=== PATIENT | male | born 1960 | race Caucasian/White ===

== ENCOUNTER 2016-09-27 09:42 | Emergency (ER) | payer MEDICARE ==
[2016-09-27 09:47] VITALS: BP 163/107
--- NOTE | 2016-09-27 10:35 | ED ---
Abdominal Pain/Male - HPI Summary HPI Summary: Patient presents to ED with concern for hernia. He notes a bulge in the right inguinal area since 4 days ago. Bulge is without pain, discoloration or temperature change. He had a hernia 40 years ago with repair in the same location. He has not had issues since that time and denies other abdominal surgeries. He is otherwise healthy. He states the bulge just happened spontaneously and he was not lifting or overexerting himself. Patient is a smoker. He denies N/V/C/D and has never had an abdominal obstruction. PMHx includes stroke for which he was hospitalized here [place] [facility] [place]. - History of Current Complaint Chief Complaint: EDGeneral Stated Complaint: LUMP ON ABD Time Seen by Provider: 09/27/16 10:17 Hx Obtained From: Patient Onset/Duration: Sudden Onset Timing: Constant Severity Initially: Mild Severity Currently: Mild Pain Intensity: 0 Pain Scale Used: 0-10 Numeric Location: Other - inguinal Radiates: No Character: Other: - no pain Aggravating Factor(s): Nothing Alleviating Factor(s): Nothing Associated Signs And Symptoms: Positive: Negative - Risk Factors Testicular Torsion: Negative Cardiac Risk Factors: Smoking - Allergies/Home Medications Allergies/Adverse Reactions: Allergies Allergy/AdvReac Type Severity Reaction Status Date / Time No Known Allergies Allergy Verified 09/27/16 09:45 PMH/Surg Hx/FS Hx/Imm Hx Previously Healthy: Yes - Surgical History Surgery Procedure, Year, and Place: HERNIA REPAIR CHILD - Immunization History Hx Pertussis Vaccination: No Immunizations Up to Date: No Infectious Disease History: No Infectious Disease History: Denies: Traveled Outside the [place] in Last 30 Days - Social History Occupation: Employed Full-time Lives: With Family Alcohol Use: None Hx Substance Use: No Substance Use Type: Reports: None Hx Tobacco Use: Yes Smoking Status (MU): Heavy Every Day Tobacco Smoker Type: Cigarettes Review of Systems Constitutional: Negative Cardiovascular: Negative Respiratory: Negative Gastrointestinal: Negative Genitourinary: Negative Positive: no symptoms reported, see HPI Musculoskeletal: Negative Positive: Other - bulge on right inguinal area Neurological: Negative Psychological: Normal All Other Systems Reviewed And Are Negative: Yes Physical Exam Triage Information Reviewed: Yes Vital Signs On Initial Exam: Initial Vitals Temp Pulse Resp BP Pulse Ox 98.9 F 106 18 163/107 100 09/27/16 09:45 09/27/16 09:45 09/27/16 09:45 09/27/16 09:45 09/27/16 09:45 Vital Signs Reviewed: Yes Appearance: Positive: Well-Appearing, No Pain Distress, Well-Nourished Skin: Positive: Warm, Skin Color Reflects Adequate Perfusion Head/Face: Positive: Normal Head/Face Inspection Eyes: Positive: EOMI, ANGELLA, Conjunctiva Clear Neck: Positive: Supple, No Lymphadenopathy Respiratory/Lung Sounds: Positive: Clear to Auscultation, Breath Sounds Present Cardiovascular: Positive: Normal, RRR, Pulses are Symmetrical in both Upper and Lower Extremities Musculoskeletal: Positive: Normal, Strength/ROM Intact, Other - bulge over right inguinal canal - most likely direct inguinal hernia without incarceration , strangulation, or bowel obstruction Neurological: Positive: Sensory/Motor Intact, Speech Normal Psychiatric: Positive: Normal - [place] Coma Scale Coma Scale Total: 15 Diagnostics - Vital Signs Vital Signs Temp Pulse Resp BP Pulse Ox 09/27/16 09:59 98.9 F 106 16 163/107 100 09/27/16 09:45 98.9 F 106 18 163/107 100 - Laboratory Lab Statement: Any lab studies that have been ordered have been reviewed, and results considered in the medical decision making process. Abdominal Pain Fem Course/Dx - Course Course Of Treatment: Right sided bulge over right inguinal canal - most likely direct inguinal hernia without incarceration, strangulation, or bowel obstruction. Reducible. Patient will follow up with Dr. Kumar as an outpatient for surgery. Denies pain, color or temperature changes. - Diagnoses Differential Diagnosis/HQI/PQRI: Bowel Obstruction, Ischemic Bowel, Other - hernia, direct, indirect Provider Diagnoses: Direct inguinal hernia Images - Images Full Body (No Head): 1 - inguinal hernia Discharge - Discharge Plan Condition: Stable Disposition: HOME Patient Education Materials: Inguinal Hernia (ED) Referrals: Mike Kumar MD [Medical Doctor] - Ulysses Catherine MD [Primary Care Provider] - Additional Instructions: Call Dr. Kumar's office today for appt. Dx: Inguinal Hernia If you develop any color changes, temperature changes or pain in the area, return to ED right away.
== END 2016-09-27 10:30 | disposition home or self-care (01) ==
LOC: ED 09:42
DX: K40.90 Unilateral inguinal hernia, without obstruction or gangrene, not specified as recurrent (principal); F17.210 Nicotine dependence, cigarettes, uncomplicated
CPT/HCPCS: 99282

== ENCOUNTER 2017-06-20 12:09 | Day surgery (SDC) | payer MEDICARE ==
[~2017-06-20 12:09] MED LIST: Buffered Lidocaine 0.9% SYRIN* 5 ML/SYR SYRINGE INTRADERM ONE; Famotidine IV* 10 MG/ML 2 ML (20 mg) IV ONE; Metoclopramide TAB* 10 MG PO ONE
[2017-06-20] MEDS ORDERED: ceFAZolin 2 GM PREMIX (*) 2 GM/50 ML BAG IVPB ONE (12:24)
[2017-06-20] MEDS ORDERED: Famotidine IV* 10 MG/ML 2 ML (20 mg) ONE (12:24)
[2017-06-20] MEDS ORDERED: Metoclopramide TAB* 10 MG ONE (12:24)
[2017-06-20] MEDS ORDERED: Buffered Lidocaine 0.9% SYRIN* 5 ML/SYR SYRINGE ONE (12:25)
[2017-06-20] MEDS ORDERED: Ondansetron INJ* 2 MG/ML VIAL ONE (12:52)
[2017-06-20] MEDS ORDERED: Lidocaine 2% PF * 5 ML VIAL ONE (12:52)
[2017-06-20] MEDS ORDERED: Ketorolac INJ* 30 MG/ML 1 ML VIAL ONE (12:52)
[2017-06-20] MEDS ORDERED: Propofol* 10 MG/ML 20 ML BTL IV PUSH ONE (12:52)
[2017-06-20] MEDS ORDERED: Dexamethasone IV* 4 MG/ML 1 ML (4 MG) ONE (12:52)
[2017-06-20] MEDS ORDERED: fentaNYL* 50 MCG/ML 2 ML VIAL (100 MCG VIAL) ONE (12:53)
[2017-06-20] MEDS ORDERED: Midazolam* 1 MG/ML 10 ML VIAL (10 MG) ONE (12:53)
[2017-06-20] MEDS ORDERED: KETAMINE HCL* 50 MG/ML 10 ML VIAL ONE (12:53)
[2017-06-20] MEDS ORDERED: Bupivacaine 0.5% SDV PF* 10-30ML VIAL ONE (13:16)
[2017-06-20] MEDS ORDERED: Lidocaine 1% MPF wEPI 200,000* 30 ML SDV ONE (13:16)
[2017-06-20] MEDS ORDERED: fentaNYL* 50 MCG/ML 2 ML VIAL (100 MCG VIAL) IV PRN (13:17)
[2017-06-20] MEDS ORDERED: Naloxone* 0.4 MG/ML 1 ML VIAL IV PRN (13:17)
[2017-06-20] MEDS ORDERED: Ondansetron INJ* 2 MG/ML VIAL IV PRN (13:17)
[2017-06-20] MEDS ORDERED: oxyCODONE/Acetamin 5/325 MG* TAB PO PRN ×2 (13:17→15:02)
[2017-06-20] MEDS ORDERED: EPHEDrine (Pressors)* 50 MG/ML VIAL ONE (14:12)
[2017-06-20 16:02] VITALS: BP 140/82
--- NOTE | 2017-06-21 19:08 | OP ---
DATE OF OPERATION: 06/20/17 [facility] DATE OF : 64 SURGEON: Kb Ramirez MD BUYER PLANNER: DORETHA Higginbotham ANESTHESIOLOGIST: Dr. Irvin Garay. ANESTHESIA: Local with MAC with conversion to LMA. PRE-OP DIAGNOSIS: Right inguinal hernia. POST-OP DIAGNOSIS: Right direct inguinal hernia. OPERATIVE PROCEDURE: Open repair with a Covidien ProGrip mesh of a right direct inguinal hernia. ESTIMATED BLOOD LOSS: Minimal. WOUND CLASSIFICATION: 1. COMPLICATIONS: None. DRAINS: None. SPECIMENS: None. DESCRIPTION OF PROCEDURE: Written informed consent was obtained, the right groin was marked with indelible ink and preoperative antibiotics were administered. The patient was taken to the operating room, placed in the supine position. Sequential compression devices and a warming blanket were applied. The right groin and lower abdomen were prepped and draped in the usual sterile fashion. Time-out verification was completed. A 0.25% Marcaine mixed with 1% lidocaine was infiltrated in the right groin and an oblique incision was made several fingerbreadths above the inguinal crease and carried down to the Amol's fascia. The external oblique aponeurosis was identified and opened in the direction of its fibers to expose the underlying spermatic cord. These cord structures were encircled with 1/4 inch [place] drain at the pubic tubercle. The inguinal floor was evaluated and there appeared to be a protuberance consistent with a direct hernia with defect in the transversalis fascia, which was adherent to the cord structures and this was freed up and dissected laterally to where we identified the epigastric vessels, which confirmed the fact that this was a direct space hernia. Careful evaluation of the cord and the structures did not reveal any indirect hernia, although there was a lipoma that was excised and not sent for specimen. The internal ring appeared to be of normal size. Once the direct space hernia had been identified, the ProGrip precut Covidien mesh was then placed and sutured to pubic tubercle with interrupted 0 Polysorb suture. This covered the direct and indirect space nicely and was sutured to the conjoint tendon superiorly with 1 interrupted 0 Vicryl suture. It was sutured to the inguinal ligament inferiorly with two separate 0 Polysorb and 0 Vicryl sutures. The mesh covered both the direct and indirect spaces nicely without evidence of wrinkling or overlap. Hemostasis was assured and additional Marcaine was infiltrated in the entire area. The external oblique aponeurosis was closed with a running 3-0 Vicryl suture and subcutaneous tissue was closed with the running 3-0 Vicryl suture. The skin was approximated with subcuticular 4-0 Vicryl suture. Steri-Strips and sterile dressings were applied. The patient tolerated the procedure well, was taken to the recovery room in stable condition. [id number]/[facility] #: [id number] CINDY
== END 2017-06-20 16:02 | disposition home or self-care (01) ==
LOC: OR 12:09
PROVIDERS: ATTEND Surgery
DX: K40.90 Unilateral inguinal hernia, without obstruction or gangrene, not specified as recurrent (principal); Z72.0 Tobacco use; I69.359 Hemiplegia and hemiparesis following cerebral infarction affecting unspecified side; Z79.82 Long term (current) use of aspirin
CPT/HCPCS: A9270-GY; C1781; J0690; J1100; J1885; J2001; J2250; J2405; J2704; J3010

== ENCOUNTER 2017-06-21 16:08 | Inpatient (IN) | payer MEDICARE ==
[2017-06-21] MEDS ORDERED: Propofol* 100 ML ONE (17:48)
[2017-06-21] MEDS: Propofol* 100 ML IV SCH ×2 (19:02→21:39)
[2017-06-21] MEDS ORDERED: VECURONIUM BROMIDE 10 MG INJ IV ONE (20:00)
--- NOTE | 2017-06-21 20:15 | RAD ---
Indication: Evaluate ET tube placement. Single frontal view of the chest performed at 1949 hours was reviewed. No prior study is available for comparison.. No mediastinal shift is noted. Heart is of normal size and configuration. Lung dejesus appear clear. ET tube is at the level of T3-T4. IMPRESSION: NO ACTIVE CARDIOPULMONARY DISEASE IS NOTED.
[2017-06-21] MEDS ORDERED: Thiamine IV* 100 MG/ML 2 ML VIAL IM ONE (20:32)
[2017-06-21] MEDS ORDERED: Acetaminophen SUPP* 650 MG SUPP PR PRN (20:32)
[2017-06-21] MEDS ORDERED: Iohexol 350* (CONTRAST) 500 ML MDV IV ONE (20:46)
--- NOTE | 2017-06-21 21:12 | RAD ---
Indication:Coma. CT of the brain was performed without IV contrast. Intratesticular structures are midline. No midline shift is noted. The extra-axial spaces are unremarkable. There is a hypodensity in the right basal ganglia likely representing old infarct. This was present on previous exam of 2011. Otherwise no midline shift is noted. No other high or low density lesions are identified. Mastoid air cells and paranasal sinuses are unremarkable. IMPRESSION: Prior infarct in the white matter of the right temporal lobe. No other mass or hemorrhage is noted. Leak
--- NOTE | 2017-06-21 21:25 | RAD ---
Indication: Stroke. Contrast: Administered 60.1 ml of OMNIPAQUE 350 mg/ml CTA of the head was performed after IV contrast administration. Coronal and sagittal reconstructed images were obtained. 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 The intracavernous portion of the left internal carotid artery demonstrates no evidence of flow. The right internal carotid artery in the intracavernous portion demonstrates atherosclerosis. There is reconstitution of the right middle and anterior cerebral arteries presumably due to a patent anterior communicating artery and posterior communicating artery. No aneurysmal dilatation is noted. 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 With reconstitution of the distal branches of left middle cerebral artery. There is reconstitution of the left anterior cerebral artery. Vertebral arteries, basilar arteries, posterior cerebral arteries appear patent. IMPRESSION: Posterior circulation is intact. 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 There is occlusion of the left middle cerebral artery at its origin with reconstitution of the anterior cerebral artery as well as distal branches of the left middle cerebral artery. The right middle cerebral artery is unremarkable.
[2017-06-21 21:45] LABS: ABS Basophils 0.1 10^3/ul (0-0.2); ABS Eosinophils 0 10^3/ul (0-0.6); ABS Lymphocytes 1.4 10^3/ul (1.0-4.8); ABS Monocytes 0.8 10^3/ul (0-0.8); ABS Neutrophils 7.9 10^3/ul (1.5-7.7); ABS Nucleated RBC 0 10^3/ul; Eosinophil % 0.5 % (0-6); Hematocrit 35 % (42-52); Hemoglobin 12.1 g/dl (14.0-18.0); Lymphocyte % 13.4 % (25-47); Mean Corpuscular HGB Conc 35 g/dl (31-36); Mean Corpuscular Hemoglobin 35 pg (27-31); Mean Corpuscular Volume 101 fL (80-94); Mean Platelet Volume 8 um3 (7.4-10.4); Nucleated Red Blood Cells % 0; Platelet Count 171 10^3/ul (150-450); Red Blood Count 3.43 10^6/ul (4.0-5.4); Red Cell Distribution Width 13 % (10.5-15); White Blood Count 10.3 10^3/ul (3.5-10.8)
[2017-06-21 22:01] LABS: EGFR Non-African American 119.5 (>60)
[2017-06-21 22:06] LABS: INR 0.84 (0.77-1.02)
[2017-06-21] MEDS: Aspirin SUPP* 300 MG PR SCH (22:10)
--- NOTE | 2017-06-21 22:13 | HP ---
ADMISSION HISTORY AND PHYSICAL: DATE OF ADMISSION: 06/21/17 REASON FOR ADMISSION: Coma. HISTORY OF PRESENT ILLNESS: This patient is a 56-year-old white male who had a right inguinal hernia repair here yesterday and was sent home with oxycodone and this morning was found comatose by his family and subsequently brought to [facility]. The patient was then transferred here because of lack of CT facility at the [facility]. The patient was intubated and placed on a ventilator while at the [facility]. The patient has a prior history of a right-sided CVA with left hemiparesis in 2011. According to the family, he occasionally uses a cane for support. There is no other significant past medical history other than the inguinal hernia. OUTPATIENT MEDICATIONS: 1. Aspirin 81 mg daily. 2. Oxycodone (prescription written yesterday). REVIEW OF SYSTEMS: Unobtainable. SOCIAL HISTORY: The patient is and lives alone. He has a prior history of alcohol abuse, and currently drinks about 4-5 beers daily. He also smokes about one pack cigarettes daily. PHYSICAL EXAMINATION GENERAL: The patient was unresponsive to deep pain. VITAL SIGNS: Temp 96.6, blood pressure 111/75, heart rate 85 and regular, respirations 15 per minute on the ventilator, O2 saturation 100% with FiO2 of 40 %, end-tidal CO2 37. HEENT: Pupils constricted and sluggishly reactive to light. Corneals intact. No facial asymmetry. NECK: Supple. CHEST: Clear. CARDIAC EXAM: No murmurs or rubs. ABDOMEN: Soft, not distended. PELVIS: There is a dressing present over the right inguinal incision, and there is swelling of the testicles with bluish discoloration. EXTREMITIES: Warm. NEUROLOGIC EXAM: There is myoclonic jerking of the left arm; otherwise, there were no focal findings. The patient did not move any extremities spontaneously. LABORATORY DATA: Most recent laboratory data at [facility] today revealed the following: White count of 17.2, hemoglobin 13.5, hematocrit 37.8, platelet count 223,000. Sodium 135, potassium 4.0, chloride 100, CO2 24, BUN 7 , creatinine 0.9, glucose 123, PO2 66, PCO2 37, pH 7.43. Salicylate and acetaminophen level were negative and the remainder of the tox screen pending. Urine oxycodone is positive. IMPRESSION: Coma of undetermined etiology. Possibilities include nonconvulsive status and acute stroke (especially involving the brainstem). Doubt drug overdose. MANAGEMENT PLAN: Will obtain CT scan of the head, EEG, and neurology consult. Further management will depend on results of these endeavors. CRITICAL CARE TIME: 60 minutes. Son present on admission to the ICU, and is aware of our concerns. The prognosis is very guarded at this point. [id number]/[facility] #: [id number] CINDY
[2017-06-21 22:17] LABS: Urine Appearance Clear; Urine Blood Negative (Negative); Urine Color Straw; Urine Ketones Negative (Negative); Urine Protein Negative (Negative); Urine Specific Gravity 1.014 (1.010-1.030); Urine Urobilinogen Negative (Negative)
--- NOTE | 2017-06-21 23:37 | CONS ---
CONSULTATION REPORT: DATE OF CONSULT: 06/21/17 PATIENT OF: Mr. Miller and Dr. Eubanks. HISTORY OF PRESENT ILLNESS: This is a 56-year-old man who was brought into [facility] today comatose, intubated and transferred to [facility]. Of note, he had a right inguinal herniorrhaphy yesterday for recurrent inguinal hernia. This went without complication. He was sent home that day. I spoke to Leah Thompson who had seen him in the [facility] ER. She was not in the ER at the time I reached her on her cell phone. She notes that after he was transferred, they found out that he was awake at noon or 12:30 and had texted his son that he was feeling well and going to take a nap. The family awaited that afternoon, called him and when he did not respond they showed up and he was found with significant neurological impairments and was brought to the [facility] Emergency Room. He did not open his eyes. He had no stiffness. He had some frothing of his mouth. He was able to have some semipurposeful movements of all extremities. He was paralyzed, sedated, and intubated and transferred to [facility]. Of note, going through his old records back in September of 2011, he had had a stroke at age 51 leaving with a right acute internal capsule ischemic stroke. This was revealed on MRI scan. He had a CTA at that time that showed less than 50% left internal carotid stenosis. No other lesions. He had a normal ejection fraction, apparently a hypercoagulable workup was done subsequent to the hospitalization and I do not know the results. He got tPA at the time of this stroke. He has a history of dyslipidemia, alcoholism, depression, and he smokes. He is apparently still drinking alcohol on an ongoing basis. PAST SURGICAL HISTORY: Other than his recent herniorrhaphy, there are no recent surgeries. He had a herniorrhaphy when he was a child. Apparently, according to anesthesia's notes, he has been left with a left hemiparesis and there is notes from physical therapy that he received some physical therapy as an outpatient after his stroke. MEDICATIONS: The patient's medicines at home were believed to be 81 mg of aspirin a day and he was given Percocet. He was supposed to take 1 to 2 pills, according to family there are only 2 pills missing from his pill bottle. He is receiving currently his meds include: 1. Propofol drip. 2. He has received vecuronium 8 mg once. 3. He has been given folic acid and thiamine. ALLERGIES: He has no known drug allergies. REVIEW OF SYSTEMS: Unavailable from the outpatient. PHYSICAL EXAM: Temperature 97.4, pulse 70, respirations 14, blood pressure 112/ 72. He was intubated. Pupils were 2 mm and sluggish. Cranial nerves were intact. He had some overbreathing of the ventilator that is some on occasion. He had his left arm was flexed with increased tone. His right arm was down. He had some minor, but apparent semipurposeful movements of lower extremities. He did not posture to noxious stimuli, but had some minor avoidance behavior. Toes were equivocal. Chest: Clear. Cardiovascular: Regular rate and rhythm. Abdomen was soft. He had ecchymotic testes. No other obvious bruising. DIAGNOSTIC STUDIES/LAB DATA: His CT scan was just done and shows evidence of his old subcortical stroke. There is no acute bleed or other findings that has not been read yet. His CTA has been done, was not loaded. He has had labs at [facility]. These include a white count of 17, hematocrit of 37, a platelet count of 223, granulocytes of 82.7. UA has a negative leuk esterase. His blood gas had a pH of 7.43, pCO2 37, pO2 66.9. The glucose was 123, BUN 7, creatinine 0.9. He had normal electrolytes. Calcium 9.3, total protein 6.8, albumin 3.8, total bili 0.7, SGOT 22, SGPT 15, alk phos 71, cocaine is pending. Other tox screens are all pending. I am not seeing a serum alcohol. His EEG showed admixed alpha, beta, and some theta activity. IMPRESSION AND PLAN: Mr. Jaime has had acute onset of coma somewhere between noon and 3:30. It is unclear of the cause of this. It is possible that this is related to drug or alcohol ingestion, although we do not have a firm history for this. We have discussed the case with Dr. Eubanks who is ordering thiamine and folic acid given his history of alcohol abuse. We will be getting an alcohol level if not obtained and we will also check a pneumonia level. Dr. Eubanks is going to notify the surgeons that he has had this event 1 day following his herniorrhaphy and get their input to see if they would have any recommendations from their point of view. He has a CTA. His CT did not show any bleed or stroke, but it is conceivable that this could represent a brainstem infract, so we may see something on his CTA. Now, he will need further imaging if not obtained. He does not appear to be having seizures and he is afebrile and we are checking with the surgeon to see if they think it could be infectious diseases. From awaited surgery, this is relatively acute onset. The CTA is still not up to view, but I have just spoken to the radiologist who is reading an occluded left internal carotid and a left MCA occlusion. He did not have this on his CTA from 2011. This is possibly and likely the his acute symptoms. From the time-frame, this is likely to wait for treating acute clot, but I will be speaking to the neurologist up at [facility] to see if they have any intervention to offer. Thank you for sharing his case. [id number]/[facility] #: [id number] I spoke to Dr Bowers within a half an hour and discussed the timing of his likely stroke and the findings on cta. Dr Bowers agrees that no agressive intervention is indicated at this time such as surgery or other procedures. CINDY
[2017-06-22] MEDS: Chlorhexidine MOUTHWASH 0.12%* 15 ML UDC TOPICAL SCH ×6 (00:05→19:56)
[2017-06-22] MEDS: Propofol* 100 ML IV SCH ×6 (01:29→19:08)
--- NOTE | 2017-06-22 03:46 | PN ---
Progress Note - Progress Note Date of Service: 06/22/17 Note: Mr Jaime is a 56YO male POD 1 elective R inguinal hernia repair who was last known intact 06/21/2017 @ 1208 via a text message to his son. He then was presented to [place] ED around 1500 comatose, intubated, and transferred to [facility] where he arrived at 1826. Further evaluation has unfortunately identified a L carotid occlusion via CTA with a currently normal CT brain WO. EEG is negative for status. I spoke with his son & [id number], who is a nurse, informing them of the diagnosis and expected poor prognosis. They wish for him to remain a full code at this time until repeat CT brain WO can be performed to more accurately assess his prognosis. Questions were sought and answered to their satisfaction. Patrick Solo MD surgery on-call was contacted and agreed there was no relation to the recent surgery. Given his quite poor clinical situation and expected course, I have reached out to [facility] in case once the f/u CT is returned, assuming the expected large infarction is present, the family wishes an evaluation for organ donation.
[2017-06-22 05:18] LABS: Hematocrit 34 % (42-52); Hemoglobin 11.7 g/dl (14.0-18.0); Mean Corpuscular HGB Conc 35 g/dl (31-36); Mean Corpuscular Hemoglobin 36 pg (27-31); Mean Corpuscular Volume 102 fL (80-94); Red Blood Count 3.28 10^6/ul (4.0-5.4); Red Cell Distribution Width 14 % (10.5-15); White Blood Count 8.9 10^3/ul (3.5-10.8)
[2017-06-22 05:45] LABS: ABS Basophils 0 10^3/ul (0-0.2); ABS Eosinophils 0.1 10^3/ul (0-0.6); ABS Lymphocytes 1.6 10^3/ul (1.0-4.8); ABS Neutrophils 6.1 10^3/ul (1.5-7.7); ABS Nucleated RBC 0 10^3/ul; Eosinophil % 0.7 % (0-6); Lymphocyte % 18.4 % (25-47); Mean Platelet Volume 9 um3 (7.4-10.4); Nucleated Red Blood Cells % 0; Platelet Count 132 10^3/ul (150-450)
[2017-06-22] MEDS: Aspirin SUPP* 300 MG PR SCH (08:04)
[2017-06-22] MEDS: Pantoprazole IV* 40 MG IV SCH (08:04)
[2017-06-22] MEDS: Multivitamins/Minerals TAB PO SCH (09:55)
[2017-06-22] MEDS: Thiamine TAB* 100 MG TAB PO SCH (09:55)
[2017-06-22] MEDS: Folic Acid TAB* 1 MG PO SCH (09:55)
--- NOTE | 2017-06-22 14:50 | RAD ---
HISTORY: Follow-up left carotid occlusion COMPARISONS: CTA dated June 21, 2017 TECHNIQUE: Multiple contiguous axial CT scans were obtained of the head without intravenous contrast. FINDINGS: HEMORRHAGE/INFARCT: There is hypoattenuation within the left inferior frontal lobe, operculum, anterior insula, and basal ganglia consistent with subacute nonhemorrhagic infarct. Elsewhere, there is no hemorrhage or acute infarct. MASSES/SHIFT: There is no mass or shift. EXTRA-AXIAL SPACES: There are no extra-axial fluid collections. SULCI AND VENTRICLES: The sulci and ventricles are normal in size and position for the patient's stated age. CEREBRUM: As noted above, there is hypoattenuation of the left inferior frontal lobe and insula and basal ganglia consistent with subacute nonhemorrhagic infarct. There is a chronic lacunar infarct of the right basal ganglia. BRAINSTEM: There are no focal parenchymal abnormalities. CEREBELLUM: There are no focal parenchymal abnormalities. VESSELS: The vessels are grossly normal. PARANASAL SINUSES: The paranasal sinuses are clear. ORBITS: The orbits are unremarkable. BONES AND SOFT TISSUE: No bone or soft tissue abnormalities are noted. OTHER: None IMPRESSION: SUBACUTE NONHEMORRHAGIC INFARCT INVOLVING THE LEFT INFERIOR FRONTAL LOBE AND ANTERIOR INSULA AND BASAL GANGLIA
--- NOTE | 2017-06-22 16:21 | PN ---
Date of Service: 06/22/17 Critical Care Services: Remains on ventilator and sedated with propofol. When off propofol, is agitated but unresponsive. Vital Signs: Temp Pulse Resp BP SpO2 FiO2 98.8 F 69 14 143/79 96 30 Physical Exam: Gen: HEENT: Lungs: Cardiac: Abdomen: Extremities: Neuro: Fluid Balance (Past 24 Hours): 06/22/17 06:59 Intake Total 1648 Output Total 4750 Balance -3102 Weight 176 lb Intake: IV Fluids 1393 LR 1393 Medicated IV 255 CC - Propofol/Diprivan 255 Output: Srinivasan 4750 Labs: 06/21/17 06/21/17 06/21/17 21:32 21:32 21:32 INR (Anticoag Therapy) 0.84 Sodium 136 Potassium 3.6 Chloride 105 Carbon Dioxide 26 BUN 6 Creatinine 0.69 Glucose 112 Lactic Acid 1.1 Calcium 8.6 Magnesium 1.9 Ammonia 37 Total Creatine Kinase 259 H Troponin I 0.01 Procalcitonin < 0.1 Urine Color Urine Appearance Salicylates < 2.50 Acetaminophen < 15 Serum Alcohol < 10 06/21/17 06/21/17 06/22/17 21:32 22:00 05:04 10.3 8.9 12.1 L 11.7 L 35 L 34 L 101 H 102 H 171 132 L Straw Clear 6.0 1.014 Negative Negative Negative Negative Negative Negative Negative Negative 06/22/17 05:04 Sodium 139 Potassium 3.4 L Chloride 111 Carbon Dioxide 24 BUN 4 L Creatinine 0.57 L Glucose 84 Total Bilirubin 0.50 AST 22 ALT 7 Alkaline Phosphatase 33 L Total Protein 4.7 L Albumin 3.0 L Studies: Head CT Scan shows hypoattenuation (ischemic stroke) involving the left frontal lobe (inferior portion) without mass effect. Nutrition: NPO Impression: Acute ischemic stroke involving left (dominant) cerebral hemisphere. Patient is otherwise stable. Plan: 1. MRI in AM 2. Restrict fluids to reduce the risk of cerebral edema. 3. Neurology service is following. Prognosis poor for satisfactory neurologic recovery. Critical Care Time: 45 minutes
--- NOTE | 2017-06-22 19:23 | PN ---
Progress Note - Progress Note Date of Service: 06/22/17 SOAP: Subjective: I was informed by Dr. Painter at 0700 of Mr. Jaime's admission and I saw him and talked with his family at about 0900 and later in the day at about 1500. I was not officially consulted to see him for his admission diagnosis but as his operating surgeon I wanted to see him and also discuss his care with his family. I reviewed his presentation and work-up with Dr. Painter, Dr. Miller and Dr. Calle. His son says he did well the night of surgery and the morning of POD#1 he was doing well and ate breakfast before he left. He was having a minimal amount of pain and he believes he only took 2 Percocet tablets for pain. Objective: His right groin incision is clean and intact with an expected small amount of swelling but no drainage. The scrotum is swollen and the skin is ecchymotic but there is no evidence of hematoma or bleeding. Assessment: POD #1 s/p open right inguinal hernia with mesh. His 81 mg ASA was not held tank -operatively. CVA Plan: I reviewed his care with the family and answered their questions to the best of my ability. I appreciate care of Paul Moreau and Luc I will continue to follow.
--- NOTE | 2017-06-23 00:20 | PN ---
NEUROLOGICAL FOLLOWUP NOTE: DATE OF FOLLOWUP: 06/22/17 PATIENT OF: Dr. Miller. HISTORY: I spoke to the family at length this morning as below. He has had no seizures overnight and no other complications. He remains intubated with eyes closed. MEDICATIONS: Include: 1. Thiamine. 2. Propofol drip. 3. Protonix. 4. Aspirin 300 mg rectally. PHYSICAL EXAMINATION: On exam, temperature 98.8, pulse 60, respirations 15, blood pressure 110/67. Eyes closed. Pupils, mid position, sluggish. He had a left gaze preference. Today, he yawned and moved his face and there was a clear facial asymmetry where he had apparent right-sided facial weakness even though he was intubated. He moved his left arm and leg semi purposely and he had increased tone in his left arm. He had some movement semi purposely in his right leg and will withdraw in his right leg. His right arm had no movement including to noxious stim. Toe was upgoing on the right, equivocal on the left. Chest: Clear. Cardiovascular: Regular rate and rhythm. Abdomen: Soft. After we got the CTA findings back last night, I spoke to Dr. Bowers in [place]. I did not think he was a candidate for clot retrieval because of the timing of the events and Dr. Bowers agreed and felt that there was no specific acute intervention needed. I discussed it with Dr. Eubanks, who relayed that to the family last night and I had a meeting with Dr. Ramirez and the family at length this morning. We discussed that most likely he has had a large left hemispheric stroke and when it is to this probable extent, then he could have complications, significantly cerebral edema and possibly from this. He could also have bleeding into such a large stroke and has potential complications. He had been on aspirin even during the day of the surgery according to Dr. Ramirez and surgery went well without clearcut complications at the time. Family asked appropriate questions. We are obtaining a CT scan today and may be long enough if we could begin to see the stroke. If not, we will be getting an MRI scan in the near future. I discussed with Dr. Miller if there is significant swelling, then there would be a potential issue of therapeutic hemispherectomy since that he is right handed and this on the left hemisphere, he would be left this severe disability and depending how things go this even if he has significant swelling, it may be discussed but may not be appropriate for this man. We will see how things evolve. Thank you of sharing his case. [id number]/[facility] #: [id number] CINDY
[2017-06-23] MEDS: Chlorhexidine MOUTHWASH 0.12%* 15 ML UDC TOPICAL SCH ×7 (00:24→22:35)
[2017-06-23] MEDS: Propofol* 100 ML IV SCH ×4 (00:25→13:40)
--- NOTE | 2017-06-23 04:23 | PN ---
ADDITIONAL NEUROLOGICAL FOLLOWUP NOTE: DATE: 06/22/17 Today, I reviewed the CT scan and then spoke to the family in detail describing that it does show the new stroke and that there was some degree of swelling and edema and that we would expect there to be additional findings in the future as the stroke evolves_ to declare itself and described the complications again of the edema. I then reached out to the neurosurgeon, Dr. Taylor, to ask him if he was equipped to do decompression if need be and he said he was capable of it, but he was going to check with Dr. Castillo to make sure that the OR was able to do this type of procedure and he got back to me later this afternoon and said he was capable and offered to see the patient. I was discussing on the situation with Dr. Miller at that time, who asked that this issue not be discussed with the family until it was clear that it was needed and for now, we are going to keep the patient on the respiratorand to hyperventilate and then he will be having a followup imaging study in the morning. [id number]/[facility] #: [id number] CINDY
[2017-06-23] MEDS: Pantoprazole IV* 40 MG IV SCH (08:51)
[2017-06-23] MEDS: Aspirin SUPP* 300 MG PR SCH (08:51)
--- NOTE | 2017-06-23 11:35 | RAD ---
HISTORY: Left carotid occlusion COMPARISONS: CT dated June 22, 2017, MRI dated October 28, 2011 TECHNIQUE: The following sequences were obtained of the head: Sagittal T1-weighted images, axial T2-weighted images, axial FLAIR images, axial susceptibility weighted images, axial T1-weighted images. Additionally, axial diffusion-weighted images were obtained with calculated apparent diffusion coefficients. FINDINGS: HEMORRHAGE/INFARCT: There is restricted diffusion consistent with a subacute nonhemorrhagic infarct involving the left inferior frontal lobe, anterior insula, and basal ganglia. This is similar in extent to the previous CT examination. Elsewhere, there is no hemorrhage or acute infarct. MASSES/SHIFT: There is no mass or shift. EXTRA-AXIAL SPACES/MENINGES: There are no extra-axial fluid collections. SULCI AND VENTRICLES: The sulci and ventricles are normal in size and position for the patient's stated age. CEREBRUM: There is elevated T2/FLAIR signal within the area of restricted diffusion of the left frontal lobe and insula and basal ganglia. There is encephalomalacia of the right posterior frontal fragoso radiata. BRAINSTEM: There are no focal parenchymal abnormalities. CEREBELLUM: There are no focal parenchymal abnormalities. The cerebellar tonsils are normal in size and position. SELLA: The sella is normal. PINEAL: The pineal region is clear. CP ANGLE/TEMPORAL BONES: The labyrinthine structures are grossly normal. VESSELS: Normal flow-voids are noted within the visualized vertebral vasculature. DIFFUSION ABNORMALITIES: As noted above, there is restricted diffusion involving the left inferior frontal lobe, frontal and rectum, anterior insula, putamen and caudate on the left. PARANASAL SINUSES/MASTOIDS: There is opacification of the left maxillary sinus. ORBITS: The orbits are unremarkable. BONES AND SOFT TISSUE: No bone or soft tissue abnormalities are noted. OTHER: None IMPRESSION: 1. RESTRICTED DIFFUSION CONSISTENT WITH SUBACUTE NONHEMORRHAGIC INFARCT INVOLVING THE LEFT INFERIOR FRONTAL LOBE, INSULA, AND BASAL GANGLIA, SIMILAR IN EXTENT TO THE PREVIOUS NONCONTRAST HEAD CT.. 2. REMOTE INFARCT OF THE RIGHT FRAGOSO RADIATA.
[2017-06-23] MEDS ORDERED: Labetalol IV* 5 MG/ML 20 ML VIAL IV PUSH PRN (15:32)
[2017-06-23] MEDS: Folic Acid TAB* 1 MG PO SCH (15:53)
[2017-06-23] MEDS: Multivitamins/Minerals TAB PO SCH (15:53)
[2017-06-23] MEDS: Thiamine TAB* 100 MG TAB PO SCH (15:54)
[2017-06-23] MEDS: Ketorolac INJ* 30 MG/ML 1 ML VIAL IV PUSH PRN ×2 (16:15→22:35)
--- NOTE | 2017-06-23 16:15 | PN ---
Date of Service: 06/23/17 Critical Care Services: MRI scan today essentially shows same lesions at CT scan. Cliniclly, patient has spontaneous limb movements but is unresponsive. Remains on ventilator although no signs of respiratory failure. Vital Signs: Temp Pulse Resp BP SpO2 FiO2 100.3 F 89 27 162/82 96 21 Physical Exam: Gen: Unresponsive. HEENT: Eyes deviated to the left. Pupils midposition and reactive. Lungs: clear Extremities: spontaneous movements of all limbs L>>>R. Fluid Balance (Past 24 Hours): 06/23/17 06:59 Intake Total 2469 Output Total 1909 Balance +559 Weight 173 lb Intake: IV Fluids 2010 LR 2010 Medicated IV 458 CC - Propofol/Diprivan 458 Output: Srinivasan 1909 Labs: None today Studies: MRI: as mentioned Nutrition: None yet - tube feedings planned for tomorrow. Impression: Large ischemic stroke of left cerebral hemisphere with coma. Degree of neurologic deficit seems greater than the extent of anatomic injury. Plan: Most immediate goal is to wean from ventilator and extubate, if possible. Further management will involve general supportive care. Family aware of current condition and management plans.
[2017-06-23] MEDS: LORazepam INJ* 2 MG/ML 1 ML VIAL IV PUSH PRN (18:46)
[2017-06-24] MEDS: LORazepam INJ* 2 MG/ML 1 ML VIAL IV PUSH PRN ×3 (00:50→15:45)
[2017-06-24] MEDS: Ketorolac INJ* 30 MG/ML 1 ML VIAL IV PUSH PRN ×2 (04:53→14:38)
[2017-06-24] MEDS: Chlorhexidine MOUTHWASH 0.12%* 15 ML UDC TOPICAL SCH ×4 (04:53→19:59)
[2017-06-24 05:26] LABS: Hematocrit 35 % (42-52); Hemoglobin 12.1 g/dl (14.0-18.0); Mean Corpuscular HGB Conc 35 g/dl (31-36); Mean Corpuscular Hemoglobin 35 pg (27-31); Mean Corpuscular Volume 101 fL (80-94); Mean Platelet Volume 8 um3 (7.4-10.4); Platelet Count 177 10^3/ul (150-450); Red Blood Count 3.47 10^6/ul (4.0-5.4); Red Cell Distribution Width 13 % (10.5-15); White Blood Count 12.7 10^3/ul (3.5-10.8)
--- NOTE | 2017-06-24 05:33 | PN ---
PROGRESS NOTE: DATE OF VISIT: 06/23/17 PATIENT OF: Dr. Miller. HISTORY: This is a 56-year-old man I am seeing in neurological followup. He remains sedated on propofol, though that it is being lightened, occasionally will open his eyes apparently. He has had no apparent seizures. His propofol is going to be decreased. MEDICATIONS: His medications include his: 1. Protonix. 2. Vitamin solutions. 3. Aspirin rectally. PHYSICAL EXAMINATION: On exam, temperature 100.3, pulse 59, respirations 18, blood pressure 124/65. He is comatose and sedated and he appears a little more sedated today than he did yesterday, so his exam is mute, I am not seeing movement on either side currently. IMAGING: I reviewed his MRI scan and discussed the findings of the films with his father and his son and discussed that it was similar to the CAT scan the day before, in that he had a subacute stroke and that the extent of the stroke was demonstrated to be just like what the CT scan was showing and was not more extensive, although it was a large stroke. There was no change in the degree of swelling. IMPRESSION AND PLAN: I discussed with the family that the findings on MRI scan were notable that there is no progression in swelling and this was a good time that there would be not as much cerebral edema as there could have been, although it is still a little bit early to know for sure. I discussed that it is hard to assess exactly how clinically affected he would be by the stroke given the sedation, but by the size of the stroke he would have right hemiparesis and decreased speech possibly severely, but the plan would be to when Dr. Miller felt it is safe to wean him from the propofol with the intent to extubate. I discussed with Dr. Miller yesterday to keep him on the dry side to limit the edema. Thank you for sharing his case. [id number]/[facility] #: [id number] CINDY
[2017-06-24 05:43] LABS: EGFR Non-African American 125.8 (>60)
[2017-06-24] MEDS: Pantoprazole IV* 40 MG IV SCH (06:34)
--- NOTE | 2017-06-24 09:56 | RAD ---
HISTORY: Post extubation, secretions, elevated white blood cell count COMPARISONS: June 21, 2017 VIEWS: 3: frontal portable view of the chest at 9:30, 931, and 9:35 AM FINDINGS: LINES AND TUBES: There is been interval removal of the endotracheal tube. CARDIOMEDIASTINAL SILHOUETTE: The cardiomediastinal silhouette is normal for portable technique. PLEURA: The costophrenic angles are sharp. No pleural abnormalities are noted. LUNG PARENCHYMA: The lungs are clear. ABDOMEN: The upper abdomen is clear. There is no subphrenic gas. BONES AND SOFT TISSUES: No bone or soft tissue abnormalities are noted. IMPRESSION: NO ACTIVE CARDIOPULMONARY DISEASE.
--- NOTE | 2017-06-24 11:27 | RAD ---
INDICATION: NG tube placement. COMPARISON: Comparison is made with a prior chest x-ray study from approximately one hour earlier.. TECHNIQUE: A portable view of the chest was obtained. FINDINGS: The heart is within normal limits in size. There is a nasogastric tube which projects over the midline. The catheter tip projects in the left upper quadrant overlying the stomach. The lungs are underinflated and clear. No pleural effusion is seen. IMPRESSION: STATUS POST NASOGASTRIC TUBE PLACEMENT, NO EVIDENCE FOR ACUTE FINDING.
--- NOTE | 2017-06-24 12:40 | RAD ---
Indication: Confirm NG tube placement. Comparison: June 24, 2017 1102 hours Technique: Upright AP 1220 hours Report: Tip of newly placed NG tube at level of gastric body directed LEFT lateral. Unchanged mild prominence of the interstitial markings. Clear pleural spaces. The heart, pulmonary vasculature, and mediastinal contours are unremarkable. Negative for free air beneath the diaphragm. IMPRESSION: Tip of newly placed NG tube at level of gastric body directed LEFT lateral.
[2017-06-24] MEDS: Multivitamins/Minerals TAB PO SCH (14:39)
[2017-06-24] MEDS: Folic Acid TAB* 1 MG PO SCH (14:39)
[2017-06-24] MEDS: Thiamine TAB* 100 MG TAB PO SCH (14:39)
[2017-06-24] MEDS: Aspirin SUPP* 300 MG PR SCH (14:58)
--- NOTE | 2017-06-24 16:48 | PN ---
Date of Service: 06/24/17 Critical Care Services: Mental status has not improved overnight - moves right side spontaneously but not purposeful movement. Patient was extubated earlier today and currently on nasal O2. An NG feeding tube was also inserted and tube feedings were started. Vital Signs: Temp Pulse Resp BP SpO2 FiO2 99.6 F 104 24 153/75 97 35 Physical Exam: Gen:Unresponsive HEENT:Eyes deviated to left Lungs:Clear Extremities:No cyanosis or edema. Fluid Balance (Past 24 Hours): 06/24/17 06:59 Intake Total 1227 Output Total 850 Balance +377 Weight 169 lb Intake: IV Fluids 1136 LR 1136 Medicated IV 91 CC - Propofol/Diprivan 91 Output: Srinivasan 850 Labs: 06/24/17 06/24/17 05:11 05:11 WBC 12.7 H Hgb 12.1 L Hct 35 L MCV 101 H Plt Count 177 Sodium 140 Potassium 3.6 Chloride 107 Carbon Dioxide 26 BUN 9 Creatinine 0.66 Glucose 91 Calcium 9.1 Magnesium 1.9 Total Bilirubin 1.20 AST 22 ALT 9 Alkaline Phosphatase 45 Total Protein 6.0 Albumin 3.5 Globulin 2.5 Albumin/Globulin Ratio 1.4 Studies: CXR: No infiltrates Nutrition: Jevity 1.2: target rate = 75 cc/hr Impression: Continues with profound neurologic deficits. Family has unrealistic expectations at this point - patient is still a full code, and is to be reintubated if necessary. Plan: General supportive care.
--- NOTE | 2017-06-25 00:35 | PN ---
NEUROLOGICAL FOLLOWUP NOTE: DATE OF VISIT: DATE OF DICTATION: 06/24/17 HISTORY: This is a 56-year-old man status post stroke. His family says that he opens his eyes some time and they feel he may follow some of his simple commands, but they are not entirely sure. MEDICATIONS: His medications continue to be; 1. Aspirin rectally. 2. Toradol p.r.n. agitation. 3. Ativan p.r.n. agitation. 4. Labetalol p.r.n. blood pressure parameters. PHYSICAL EXAMINATION: Temperature 98.9, pulse 87, respirations 20, and blood pressure 150/77. On exam, he has been extubated now. He does not open eyes, when I open his eyes he tends to look to the left rather than the right. It is not clear that he responds to threat on the right. Pupils 2 mm and reactive. Facies; he had a right facial weakness. He had 0/5 strength on the right. He moved his left arm against gravity with power, but did not follow commands with full testing. He was able to wiggle his toes on the left, but not the right foot and it is unclear whether he did it to command or to just touch. Chest: Clear. Cardiovascular: Regular rate and rhythm. Abdomen is soft with positive bowel sounds. White count 12.7, hemoglobin 35, platelets 177,000. He had a normal CMP. His total bili was 1.2, total protein 6.0. I discussed with the daughter who is by bedside that he sustained a major stroke involving the left side of his brain that would leave him with significant weakness and speech comprehension deficits and possible visual deficits. The weakness would be on the right side. He has just been extubated and had been sedated, so it will take time to sort out the full deficits that he will need to try to make a slow recovery from, but there is likely to be significant problems and there are no guarantees how much speech comprehension he will regain. I discussed that his leg may be less affected than his arm. I discussed similar things with the family in the past. Dr. Miller is planning on when stable, transferring him out of the unit. I discussed with his family that Dr. Cortes will be picking up the service and will be evaluating him, not on a daily basis, but to follow him while he is in the hospital and she will be on through the weekend. Thanks for sharing his case. [id number]/[facility] #: [id number] CINDY
--- NOTE | 2017-06-25 03:55 | EEG ---
ELECTROENCEPHALOGRAPHY: DATE OF STUDY: DATE OF DICTATION: 06/24/17 - ROOM #ICU-12 PATIENT OF: Dr. Miller. CLINICAL PROBLEM: This is a 56-year-old intubated man being evaluated for possible seizures. He was found comatose in the field and was intubated and is on propofol now. He has been on aspirin as an outpatient, although his medications are not listed on the chart. REPORT: With the patient on propofol and without eyes opening, background consists of admixed alpha, beta and theta range frequencies. The diffuse field is prominent muscle movement artifact throughout this tracing, but there are no clear-cut epileptiform potentials noted and clearly no subclinical status. There is no major asymmetry is seen, but given the degree of artifact it is hard to be sure if there is any asymmetry at all. CLINICAL IMPRESSION: This sedated EEG shows no evidence of seizures or subclinical status. [id number]/[facility] #: [id number] MTDD
[2017-06-25] MEDS: Multivitamins/Minerals TAB PO SCH (09:31)
[2017-06-25] MEDS: Pantoprazole IV* 40 MG IV SCH (09:31)
[2017-06-25] MEDS: Thiamine TAB* 100 MG TAB PO SCH (09:31)
[2017-06-25] MEDS: Folic Acid TAB* 1 MG PO SCH (09:31)
--- NOTE | 2017-06-25 10:54 | PN ---
Progress Note - Progress Note Date of Service: 06/25/17 Note: Patient continues to be unresponsive (although he does have spontaneous movements of left arm and leg). Is now extubated and on O2 mask, and is receiving tube feedings. Prognosis for neurologic recovery is very poor (i.e., unlikely to regain consciousness or independent function) - family aware of this , and the patient is now DNI/DNR (per his son, who is the healthcare proxy). Our plan at this point is general supportive care - will request palliative care consult.
[2017-06-25] MEDS: Heparin VIAL(*) 5000 UNITS/ML VIAL (FIVE THOUSAND) SUBCUT SCH (21:15)
[2017-06-25] MEDS: LORazepam INJ* 2 MG/ML 1 ML VIAL IV PUSH PRN (21:16)
[2017-06-26] MEDS: LORazepam INJ* 2 MG/ML 1 ML VIAL IV PUSH PRN (03:16)
[2017-06-26] MEDS ORDERED: Morphine INJ* 2 MG/ML 1 ML CARPUJECT ONE (03:52)
[2017-06-26] MEDS ORDERED: Morphine INJ* 2 MG/ML 1 ML CARPUJECT IV ONE (04:00)
--- NOTE | 2017-06-26 04:35 | PN ---
PROGRESS NOTE: DATE OF VISIT: 06/25/17 HISTORY OF PRESENT ILLNESS: Aaron Jaime is a 56-year-old gentleman with partial left MCA stroke on 06/21/17 with findings on CTA of left carotid occlusion and proximal left MCA occlusion with reconstitution of the anterior cerebral artery and distal branches of the left MCA artery. This occurs in the setting of a history of stroke in 2012, dyslipidemia, smoking, alcohol use, depression. Dr. Vickers saw him in consultation. He has had NUCLEAR PHYSICIAN imaging, which has shown a left inferior frontal lobe stroke including the insula and basal ganglia as well as remote right fragoso radiata stroke. He has been monitored in the ICU and was intubated, now extubated and plan had been to transfer him to the floor ; however, after evaluation and discussion with floor nurses and Respiratory, decision was made to keep in the ICU for a little bit longer. He is, however, a DNR per family decision, corresponding to patients wishes years ago in a consult for tPA in 2011. PHYSICAL EXAMINATION: On examination today, Mr. Jaime's most recent temperature was 98.4, heart rate was 91, respiratory rate was recorded at 24, was up in the 30s when evaluated with rhonchi throughout his chest, oxygen sat was 100% on 8 L and mask. His blood pressure was 188/91. He had a regular cardiac rhythm. He had rhonchi throughout his chest and on initial evaluation appeared to have some use of abdominal muscles in breathing, which improved after suctioning. He had no rashes or petechiae noted. His left ankle showed some redness suggesting potential beginning of a pressure sore. He was sleepy, did not open his eyes on his own, but did look to the left on command and to some extent to the right, was more attentive after shining light in his pupils that were equal and responsive. His facial expression was asymmetric with weakness on the right hand side. There was no verbal output. Of note, he is a right-handed leslie. There was good strength on the left upper extremity and purposeful movements not only to command, but also he used that hand to adjust his oxygen mask. His left lower extremity, he tried to lift, but had difficulty. When I lifted his proximal leg, he was able to kick out his distal left leg. He had no movement on the right hand side in his arm and in his leg. DIAGNOSTIC STUDIES/LAB DATA: Chest x-ray from yesterday showed clear pleural spaces and was done to confirm NG placement. He had had an EEG yesterday, which showed no evidence of epileptiform activity. His MRI of the brain, which was reviewed directly, again showed a partial left MCA stroke and his CTA of the brain had previously shown a left carotid occlusion as well as occlusion of the origin of the left MCA with probable collateral flow from the RITA to the MCA. Laboratory tests show a white count, which is up to 12.7, hemoglobin and hematocrit are 12.1 and 35, platelets are 177. Creatinine was low at 0.66. Total bilirubin was elevated at 1.20, total protein was low at 6.0. Otherwise, his metabolic panel was normal. He had a urinalysis when he was admitted on the 06/21/17, which was negative. IMPRESSION: Aaron Jaime is a 56-year-old gentleman with history of partial left middle cerebral artery stroke in the setting of carotid and middle cerebral artery occlusion with collateral flow most likely limiting the size of the stroke, which could have been much larger. He is at day 4, which is often at peak edema. The improvement of movement on the left side suggests that we may have just passed peak edema. Of concern is his alertness, his ability to protect his respiratory status and after discussion with Nursing and Respiratory on the floor, it was felt that he be best served with a lower nurse to patient ratio. This was discussed with ICU where he has been cared for and decision was made to keep him for a little bit longer. He is a high risk for aspiration. He is, however, DNR per family. We may see a significant increase in interaction over the next couple days and hopefully respiratory status will remain stable for transfer to the floor. The patient has had previous stroke. He does smoke and chart lists history of dyslipidemia. Treatment with statin would be appropriate when able to take POs. He is receiving heparin subcu at this time, and aspirin per rectum would be appropriate unless there is a contraindication from an internal medicine perspective. Hypercoagulable work up results from previous admission are not available to me at this time. Further care for stroke including physical therapy, OT, rehab will be discussed in the future once we get through this acute period of time as well as at that point further evaluation for stroke etiology will need to be considered. TIME SPENT: Over an hour was spent in the patient's care, over 50% of the time was spent in education and counseling with family and caregivers. All questions were answered. [id number]/[facility] #: [id number] CINDY
[2017-06-26 05:12] LABS: Hematocrit 35 % (42-52); Hemoglobin 12.1 g/dl (14.0-18.0); Mean Corpuscular HGB Conc 35 g/dl (31-36); Mean Corpuscular Hemoglobin 35 pg (27-31); Mean Corpuscular Volume 100 fL (80-94); Mean Platelet Volume 8 um3 (7.4-10.4); Platelet Count 231 10^3/ul (150-450); Red Blood Count 3.48 10^6/ul (4.0-5.4); Red Cell Distribution Width 13 % (10.5-15); White Blood Count 11.6 10^3/ul (3.5-10.8)
[2017-06-26 05:34] LABS: EGFR Non-African American 130.3 (>60)
--- NOTE | 2017-06-26 07:29 | RAD ---
INDICATION: Pneumonia COMPARISON: June 24, 2017 TECHNIQUE: An AP portable view obtained at 0600 hours is submitted. FINDINGS: Bones/Soft Tissues: There are no acute bony findings. There is nasogastric tube in the region of pyloric channel. Cardiomediastinal: The cardiomediastinal silhouette is normal. Lungs: There is interstitial prominence with mild patchy right basilar interstitial change which appears new and could be secondary to a developing pneumonitis. Pleura: There are no pleural effusions. Other: None IMPRESSION: SUSPECT DEVELOPING RIGHT BASAL INFILTRATE. SUGGEST FOLLOW-UP
[2017-06-26] MEDS ORDERED: Aspirin SUPP* 300 MG PR SCH (09:00)
[2017-06-26] MEDS: Heparin VIAL(*) 5000 UNITS/ML VIAL (FIVE THOUSAND) SUBCUT SCH (09:38)
[2017-06-26] MEDS ORDERED: Zosyn per Pharmacy* NOTE FOLLOW UP SCH (10:00)
[2017-06-26] MEDS ORDERED: Piperacillin/Tazobac ADVAN(*) 3.375 GM in NS 0.9% 100 ML* 100 ML IVPB ONE (10:30)
[2017-06-26] MEDS ORDERED: Morphine INJ* 10 MG/ML 1 ML CARPUJECT IV ONE ×2 (12:25→19:00)
[2017-06-26] MEDS ORDERED: LORazepam INJ* 2 MG/ML 1 ML VIAL IV PUSH ONE (12:25)
[2017-06-26] MEDS ORDERED: LORazepam PREMIX BAG 1MG/ML* 100 MG/100 ML BAG IVPB SCH (12:30)
[2017-06-26] MEDS ORDERED: Morphine PCA 5 MG/ML * Titrate per Protocol PCA SCH (13:00)
[2017-06-26] MEDS ORDERED: LORazepam VIAL (for drip)* 100 MG in D5W 50 ML BAG* 50 ML IVPB SCH (13:00)
[2017-06-26] MEDS ORDERED: Piperacillin/Tazobactam 13.5 GM IV 24 hour continuous infusion IVPB SCH ×2 (14:30)
--- NOTE | 2017-06-26 15:23 | PN ---
Progress Note - Progress Note Date of Service: 06/26/17 Note: Patient developed fever overnight and CXR this AM shows possible pneumonia at right base. Mental status continues to be poor - responds only intermittently to voice - and because of poor prognosis (i.e., aphasia likely and independent existence unlikely), family asked for "comfort measures only" care, which was started earlier today. Patient is now breathing comfortably on morphine and lorazepam infusions (he had been struggling to breathe). All other meds ( including O2) have been discontinued. Neurology service aware of the management plan.
[2017-06-26 17:01] VITALS: BP 115/70
[2017-06-26] MEDS ORDERED: LORazepam INJ* 2 MG/ML 1 ML VIAL IV PUSH PRN (18:56)
--- NOTE | 2017-06-26 20:27 | PN ---
Progress Note - Progress Note Date of Service: 06/26/17 Note: Paged for asystole on this comfort care patient. No family member at the bedside on my arrival. Patient pulseless with no respirations. Time of : 1930 Cause of : L MCA CVA Dr. Mliler notified - full d/c summary will be dictated in the AM by Dr. Milelr.
--- NOTE | 2017-06-26 22:06 | PN ---
CC: Ismael Vickers MD * FOLLOWUP NOTE: DATE OF SERVICE: 06/26/17 HISTORY OF PRESENT ILLNESS: Aaron Jaime is a 56-year-old gentleman who was admitted to hospital with partial left MCA stroke, which occurred in the setting of left carotid occlusion and proximal MCA occlusion after hernia repair on 06/20/17. Since yesterday, he was up most of the night. This morning he appeared tired. There was rhonchi evident. Fever has gone to 101.5. The patient could not give any further verbal update of symptoms given his clinical status. PHYSICAL EXAMINATION: On examination, his most recent vitals include temperature of 101.5 measuring temporally, heart rate 92, respiratory rate 39, saturation 97% on 8 L of oxygen, and blood pressure 170/89. He had a regular cardiac rhythm. Rhonchi throughout his pulmonary dejesus to auscultation. He had no evidence of peripheral edema. No petechiae. There was slight redness noted on the left heel pointed out to nursing. He did not open his eyes on his own to command; however, his left eye was open more than his right when first coming into the room with the right eye matted closed. Both of these were freed and opened and he rested peacefully, but did not respond to command in that regard. His pupils were equal and responsive to light. He seemed to attend to the light and to follow verbal commands with his eye movements. There was no blink to the right, question to the left to threat. He did respond to movement of the left upper extremity and gave very good strength at proximally biceps, triceps and distally at hand web retailer, but repeat efforts fatigued. In his left lower extremity, he was able to bend his hip and knee with antigravity strength 2 to 3/5 and some knee extension strength at about 2/ 5. He wiggled toes more vigorously on the left than the right. There was no other movement on the right hand side to command or to stimuli. LABORATORY DATA: Data includes sodium elevated at 146, potassium 3.2, chloride 113, BUN 13, creatinine 0.64. BUN and creatinine ratio elevated at 20.3. Glucose 151, calcium 8.8. Urinalysis was negative. White count was 11.6, hemoglobin and hematocrit were 12.1 and 35, and platelets 231,000. IMPRESSION: Aaron Jaime is a 56-year-old gentleman with a history of right parietal stroke in 2011, now with left carotid occlusion and proximal middle cerebral artery occlusion and partial left middle cerebral artery stroke after hernia repair on 06/20/17. His course has been complicated by decreased responsiveness, fever, elevated white count, and chest x-ray findings raising question of infiltrate. Dr. Miller is treating and starting antibiotics. He is day 5 poststroke and exam showed similar motor findings yesterday; however , increased need to stimulate to get response. Causes for this could be decreased rest last night, infection or even further stroke. On previous CTA, collaterals appeared to be feeding the distal middle cerebral artery branches. He has been started on rectal aspirin. For now, the ICU is trying to support his care through a critical period. If no improvement in mental status is noted in the next 48 hours as edema should recede, I would repeat his MRI of the brain to look for extensive injury and prognosis. In evaluation of stroke etiology, he will need an echocardiogram with bubble study and hypercoagulable workup. At this time, anticoagulation would not be indicated given the size of stroke and the acute stroke. I would also check fasting lipid profile when possible. He is currently on tube feeds. Eventually , if he reaches the point of being able to take p.o. intake and medications, this will be appropriate. For now, he is on rectal aspirin. TIME SPENT: Over 45 minutes was spent in direct patient care with extensive discussions with ICU attending, review of films, x-rays. Dr. Alvarez will be assuming care tomorrow. [id number]/[facility] #: [id number] CINDY
--- NOTE | 2017-06-28 12:06 | DS ---
SUMMARY: DATE OF ADMISSION: 06/21/17 DATE OF : 06/26/17 HISTORY: This was a 54-year-old white male, who was admitted with an acute ischemic stroke involving the left middle cerebral artery. The patient was comatose on admission and during the hospital stay , there was some improvement in the level of consciousness; however, the patient never regained respo nsiveness to verbal commands. Because of the severity of the neurologic deficit and the poor prognos is for recovery, the patient was made a DNR and was eventually placed on comfort care, which included benzodiazepine and morphine infusions. The patient was pronounced on 06/26/17. [id number]/[facility] #: [id number]
== END 2017-06-26 19:31 | disposition expired | DRG 64 ==
LOC: ICU 17:53 → MEDTELE 06-25 13:00 → ICU 06-25 14:04
PROVIDERS: ADMIT Internal Medicine Critical Care Medicine; ATTEND Pediatrics
PROC: 5A1945Z Respiratory Ventilation, 24-96 Consecutive Hours (ICD-10-PCS; 2017-06-21)
PROC: 4A00X4Z Measurement of Central Nervous Electrical Activity, External Approach (ICD-10-PCS; principal; 2017-06-24)
PROC: 0DH67UZ Insertion of Feeding Device into Stomach, Via Natural or Artificial Opening (ICD-10-PCS; 2017-06-24)
PROC: 0BP1XDZ Removal of Intraluminal Device from Trachea, External Approach (ICD-10-PCS; 2017-06-24)
DX: I63.512 Cerebral infarction due to unspecified occlusion or stenosis of left middle cerebral artery (principal); G93.6 Cerebral edema; R40.20 Unspecified coma; I63.232 Cerebral infarction due to unspecified occlusion or stenosis of left carotid arteries; G81.91 Hemiplegia, unspecified affecting right dominant side; I69.354 Hemiplegia and hemiparesis following cerebral infarction affecting left non-dominant side; F17.210 Nicotine dependence, cigarettes, uncomplicated; E78.5 Hyperlipidemia, unspecified; Y90.9 Presence of alcohol in blood, level not specified; F10.20 Alcohol dependence, uncomplicated; F32.9 Major depressive disorder, single episode, unspecified; R58 Hemorrhage, not elsewhere classified; N50.89 Other specified disorders of the male genital organs; Z66 Do not resuscitate; R50.9 Fever, unspecified
CPT/HCPCS: 36415; 70450; 70496; 70551; 71045; 80048; 80053; 80320; 80329; 81003; 82140; 82550; 83605; 83735; 84145; 84484; 85025; 85027; 85610; 87040; 87070; 87077; 87186; 87205; 87641; 94002; 94003; 94760; 95812; A9270-GY; C1781; G0480; J0690; J1100; J1644; J1885; J2001; J2060; J2250; J2270; J2405; J2543; J2704; J3010; J3411; Q9967